=== PATIENT | male | born 1955 | race Two or more races ===

== ENCOUNTER 2016-11-14 14:16 | Emergency (ER) | payer OTHER | END 2016-11-14 15:40 | disposition home or self-care (01) | LOC: SED 14:16 | DX: S50.811A Abrasion of right forearm, initial encounter (principal); I10 Essential (primary) hypertension; J45.909 Unspecified asthma, uncomplicated; Z88.8 Allergy status to other drugs, medicaments and biological substances; X58.XXXA Exposure to other specified factors, initial encounter; Z23 Encounter for immunization | CPT/HCPCS: 90471; 90715; 99283 ==